=== PATIENT | female | born 1950 | race Two or more races ===

== ENCOUNTER 2023-10-12 15:38 | Emergency (ER) | payer OTHER ==
[~2023-10-12] VITALS: Ht 162.6 cm; Wt 73.5 kg
[2023-10-12 18:06] LABS: Basophils # (auto) 0.1 10 ^3/uL (0-0.2); Basophils % (auto) 0.4 % (0.0-2.0); Eosinophils # (auto) 0.1 10 ^3/uL (0-0.8); Eosinophils % (auto) 1.1 % (0.0-7.0); Hematocrit 41.1 % (36.0-46.0); Hemoglobin 13.6 g/dL (12.2-16.2); Lymphocytes # (auto) 1.5 10 ^3/uL (0.4-5.4); Lymphocytes % (auto) 11.4 % (10.0-50.0); Mean Corpuscular Hemoglobin 28.8 pg (28.0-32.0); Mean Corpuscular Hgb Conc. 33.1 g/dL (32.0-36.0); Monocytes # (auto) 0.7 10 ^3/uL (0-1.3); Neutrophils # (auto) 10.7 10 ^3/uL (1.6-8.6); Neutrophils % (auto) 82.1 % (37.0-80.0); Nucleated Red Blood Cells % 0.5 %; Red Blood Cells 4.73 10^6/uL (4.0-5.20); Red Cell Distribution Width 14.1 % (11.8-14.3); White Blood Cell 13.1 10^3/uL (4.4-10.8)
[2023-10-12 18:24] LABS: Alanine Aminotransferase 24 U/L (7-40); Albumin 4.6 g/dL (3.2-4.8); Alkaline Phosphatase 77 U/L (46-116); Anion Gap 11 (5-15); Aspartate Aminotransferase 31 U/L (13-40); BUN/Creatinine Ratio 13.2 (10.0-20.0); Bilirubin, Total 0.5 mg/dL (0.2-1.0); Blood Urea Nitrogen 9 mg/dL (9-23); Calcium 9.7 mg/dL (8.7-10.4); Carbon Dioxide 22 mmol/L (20-30); Chloride 104 mmol/L (98-107); Glucose 87 mg/dL (74-106); Lipase 47 U/L (12-53); Magnesium 1.9 mg/dL (1.6-2.6); Potassium 3.9 mmol/L (3.5-5.1); Sodium 137 mmol/L (136-145); Total Protein 7.3 g/dL (5.7-8.2)
[2023-10-12] MEDS: VANCOMYCIN 1GM/200ML 200 ML IV ONE (19:15)
[2023-10-12] MEDS: PIPERACILLIN-TAZOB 3.375GM 100 ML IV ONE (20:45)
[2023-10-12] MEDS: SODIUM CHLORIDE 0.9% 1,000 ML IV ONE (20:45)
[2023-10-12] MEDS: IOHEXOL 300 MG/ML 100ML BOTTLE IJ ONE (21:09)
[2023-10-12] MEDS: OMNIPAQUE 12mg/ml 500ml ORAL SOLUTION PO ONE (21:10)
[2023-10-12] MEDS ORDERED: ZOFR4T PO (21:59)
[2023-10-12] MEDS ORDERED: MESA800T9 PO (21:59)
[2023-10-12] MEDS ORDERED: ACET-1079 PO (21:59)
[2023-10-12] MEDS ORDERED: hydrALAZINE HCL 20 MG/ML VL IV PRN (22:00)
[2023-10-12] MEDS: MESALAMINE 400mg Delayed Release Cap PO ONE (23:59)
[2023-10-13 00:01] VITALS: BP 144/60; TEMP 98.4
[2023-10-13 00:02] VITALS: PULSE 78; RESP 20; O2SAT 96
== END 2023-10-13 00:18 | disposition home or self-care (01) ==
LOC: ER 15:38
DX: K52.9 Noninfective gastroenteritis and colitis, unspecified (principal); I10 Essential (primary) hypertension; E11.9 Type 2 diabetes mellitus without complications; E78.5 Hyperlipidemia, unspecified; Z90.710 Acquired absence of both cervix and uterus
CPT/HCPCS: 36415; 74176; 74177; 80053; 83605; 83690; 83735; 84484; 85025; 96365; 96366; 96368; 99285; J2543; J3370; J7030; Q9967

== ENCOUNTER 2024-11-04 11:54 | Inpatient (IN) | payer OTHER ==
[~2024-11-04] VITALS: Ht 162.6 cm; Wt 72.0 kg
[2024-11-04] VITALS (22 sets, daily range): BP systolic 86–121; BP diastolic 43–63; PULSE 58–73; RESP 11–18; TEMP 97.5; O2SAT 94–99
[~2024-11-04 11:54] MED LIST: ACET-1079 PO; MESA800T9 PO; ZOFR4T PO
--- NOTE | 2024-11-04 12:14 | ED.PDOC ---
History of Present Illness HPI Comments 74-year-old female with PMHx Colon Cancer presents with a chief complaint of nausea, vomiting, and poor appetite since chemotherapy x 2 weeks ago. Patient was undergoing chemotherapy for colon cancer and had her last session x 2 weeks ago. Patient since then has been having intermittent nausea and vomiting, as well as not eating or drinking anything due to "nothing tastes good". Patient is actively vomiting in triage. Chief Complaint: Nausea/Vomiting Time Seen by MD: 12:01 Primary Care Provider: sonia Reviewed Notes: Nurses Notes, Medications, Allergies Allergies: Coded Allergies: NO KNOWN ALLERGIES (Unverified , 10/12/23) Home Meds Active Scripts Acetaminophen (Tylenol) 325 Mg Tb, 325 MG PO Q4HPRN PRN for 12 Days, #60 TAB for pain Prov:МАРИЯ BURGESS MD 10/12/23 Ondansetron Odt 4MG Tab (ZOFRAN PO) 4 Mg Tb, 4 MG PO Q8HP PRN for 10 Days, #30 TAB ODT TAB-DISSOLVE IN MOUTH, THEN SWALLOW Prov:МАРИЯ BURGESS MD 10/12/23 Mesalamine (Mesalamine Dr) 800 Mg Tab, 800 MG PO TID for 42 Days, #126 TAB Prov:МАРИЯ BURGESS MD 10/12/23 Information Source: Patient, Relative (GrandChild) Mode of Arrival: Wheelchair Severity: Moderate Timing: Days Duration: Since onset Prehospital treatment: None Past Medical History PAST MEDICAL HISTORY: Cancer, DM, High Lipids, HTN Surgical History: 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 Hx Family History Family History: Unknown Social History Smoker: Non-Smoker Alcohol: Denies ETOH Use Drugs: Denies Drug Use Lives In: Home Constitutional: denies: chills, diaphoresis, fatigue, fever, malaise, sweats, weakness, others EENTM: denies: blurred vision, double vision, ear bleeding, ear discharge, ear drainage, ear pain, ear ringing, eye pain, eye redness, hearing loss, mouth pain, mouth swelling, nasal discharge, nose bleeding, nose congestion, nose pain, photophobia, tearing, throat pain, throat swelling, voice changes, others Respiratory: denies: cough, hemoptysis, orthopnea, SOB at rest, shortness of breath, SOB with excertion, stridor, wheezing, others Cardiovascular: denies: chest pain, dizzy spells, diaphoresis, Dyspnea on exertion, edema, irregular heart beat, left arm pain, lightheadedness, palpitations, PND, syncope, others Gastrointestinal: reports: nausea, poor appetite, vomiting; denies: abdomen distended, abdominal pain, blood streaked bowels, constipated, diarrhea, dysphagia, difficulty swallowing, hematemesis, melena, poor fluid intake, rectal bleeding, rectal pain, others Genitourinary: denies: abnormal vagina bleeding, burning, dyspareunia, dysuria, flank pain, frequency, hematuria, incontinence, pain, , vagina discharge, urgency, others Neurological: denies: dizziness, fainting, headache, left sided numbness, left sided weakness, numbness, paresthesia, pre-existing deficit, right sided numbness, right sided weakness, seizure, speech problems, tingling, tremors, weakness, others Musculoskeletal: denies: back pain, gout, joint pain, joint swelling, muscle pain, muscle stiffness, neck pain, others Integumetry: denies: bruises, change in color, change in hair/nails, dryness, laceration, lesions, lumps, rash, wounds, others Allergic/Immunocompromised: denies: Difficulty Healing, Frequent Infections, Hives, Itching, others Hematologic/Lymphatic: denies: anemia, blood clots, easy bleeding, easy bruising, swollen glands, others Endocrine: denies: excessive hunger, excessive sweating, excessive thirst, excessive urination, flushing, intolerance to cold, intolerance to heat, unexplained weight gain, unexplained weight loss, others Psychiatric: denies: anxiety, bipolar disorder, depression, hopeless, panic disorder, schizophrenia, sleepless, suicidal, others All Other Systems: Reviewed and Negative Physical Exam General Appearance: Moderate Distress HEENT: Pale Conjuntivae (L), Pale Conjuntivae (R), Pharynx Normal, TMs Normal Neck: Full Range of Motion, Non-Tender, Normal, Normal Inspection Respiratory: Chest Non-Tender, Lungs Clear, No Accessory Muscle Use, No Respiratory Distress, Normal Breath Sounds Cardiovascular: No Edema, No JVD, No Murmur, No Gallop, Normal Peripheral Pulses, Regular Rate/Rhythm Breast Exam: Deferred Gastrointestinal: No Organomegaly, Non Tender, No Pulsatile Mass, Normal Bowel Sounds, Soft Genitalia: Deferred Pelvic: Deferred Rectal: Deferred Extremities: No calf tenderness, Normal capillary refill, No pedal edema Musculoskeletal : Apperance: Normal Neurologic: Alert, 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 Was a procedure done?: No Differential Dx Considerations may include: Generalized weakness, electrolyte imbalance, hypokalemia, dehydration, colon cancer, status post chemotherapy X-Ray, Labs, Meds, VS Vital Signs Date Time Temp Pulse Resp B/P (MAP) Pulse Ox O2 Delivery O2 Flow Rate FiO2 11/04/24 14:02 69 11/04/24 13:40 97.6 66 16 78/46 (57) 98 97.6 76/48 (57) 11/04/24 12:07 97.7 75 16 120/80 (93) 98 97.7 Lab Test 11/04/24 12:40 Range/Units White Blood Count 5.6 4.4-10.8 10^3/uL Red Blood Count 4.33 4.0-5.20 10^6/uL Hemoglobin 13.2 12.2-16.2 g/dL Hematocrit 38.4 36.0-46.0 % Mean Corpuscular Volume 88.9 80.0-100.0 fL Mean Corpuscular Hemoglobin 30.6 28.0-32.0 pg Mean Corpuscular Hemoglobin Concent 34.4 32.0-36.0 g/dL Red Cell Distribution Width 18.6 H 11.8-14.3 % Platelet Count 270 140-450 10^3/uL Mean Platelet Volume 8.1 6.9-10.8 fL Neutrophils (%) (Auto) 37.0-80.0 % Lymphocytes (%) (Auto) 10.0-50.0 % Monocytes (%) (Auto) 0.0-12.0 % Basophils (%) (Auto) 0.0-2.0 % Neutrophils # (Auto) 1.6-8.6 10 ^3/uL Lymphocytes # (Auto) 0.4-5.4 10 ^3/uL Monocytes # (Auto) 0-1.3 10 ^3/uL Differential Total Cells Counted 100.0 100 Neutrophils % (Manual) 45 37.0-80.0 Band Neutrophils % (Manual) 5 Lymphocytes % (Manual) 46 10.0-50.0 Monocytes % (Manual) 1 0-12 Eosinophils % (Manual) 0 0-7 Basophils % (Manual) 0 0.0-2.0 Metamyelocytes % (manual) 2 Myelocytes % (Manual) 1 Promyelocytes % (Manual) 0 Blast Cells % (Manual) 0 Reactive Lymphocytes 0 Platelet Estimate Adequate Sodium Level 135 L 136-145 mmol/L Potassium Level 2.1 *L 3.5-5.1 mmol/L Chloride Level 95 L 98-107 mmol/L Carbon Dioxide Level 20 20-31 mmol/L Anion Gap 20 H 5-15 Blood Urea Nitrogen 48 H 9-23 mg/dL Creatinine 6.60 H 0.550-1.02 mg/dL Glomerular Filtration Rate Calc 6 >90 mL/min BUN/Creatinine Ratio 7.3 L 10.0-20.0 Serum Glucose 140 H 74-106 mg/dL Calcium Level 9.7 8.7-10.4 mg/dL Total Bilirubin 1.2 H 0.2-1.0 mg/dL Aspartate Amino Transferase (AST) 46 H 13-40 U/L Alanine Aminotransferase (ALT) 26 7-40 U/L Alkaline Phosphatase 150 H 46-116 U/L Total Protein 6.5 5.7-8.2 g/dL Albumin 3.8 3.2-4.8 g/dL Current Medications Medications (Trade) Dose Ordered Sig/Konstantin Route Start Time Stop Time Status Last Admin Sodium Chloride 500 ml @ 500 mls/hr Q1H ONCE IV 11/04/24 12:15 11/04/24 13:14 DC 11/04/24 12:47 Ondansetron HCl (Zofran) 4 mg ONCE ONCE IV 11/04/24 12:15 11/04/24 12:16 DC 11/04/24 12:47 Potassium Chloride 100 ml @ 50 mls/hr Q2H IV 11/04/24 13:45 11/04/24 17:44 11/04/24 14:29 Potassium Chloride (Klor-Con Tablet) 40 meq ONCE ONCE PO 11/04/24 13:45 11/04/24 13:46 DC 11/04/24 14:09 IV Hep-Lock was established. The patient was bolused with normal saline at a 500 cc bolus The patient was also given Zofran 4 mg IV push for the nausea The patient's potassium level came back at 2.1 The BUN is 48 and the creatinine is 6.6 We did ask again if the patient has kidney disease but she does not. A renal consult will be obtained. We did give the patient potassium as a K rider The patient was also given potassium p.o. The CBC is within normal limits At this time we will continue to hydrate the patient The patient is being admitted at this time. Images Reviewed?: Images reviewed and evaluated by me Time of 1ST Reevaluation: 12:31 Reevaluation 1ST: Improved Patient Education/Counseling: Diagnosis, Treatment, Prognosis Family Education/Counseling: Diagnosis, Treatment, Prognosis Departure 1 Departure Time of Disposition: 14:51 Impression: Primary Impression: Intractable vomiting Additional Impressions: Hypokalemia Dehydration Renal insufficiency Colon cancer Qualified Codes: C18.9 - Malignant neoplasm of colon, unspecified Status post chemotherapy Disposition: ADMITTED INPATIENT Admit to: Tele Condition: Fair Critical Care Note Critical Care Time?: Yes (45 min-critical care time only) Stability Stability form required: Yes Unstable for transfer: Telemetry monitoring (Telemetry monitoring required), ED Physician Assesment (Clinical assesment) Heart Score Heart Score: Heart Score Response (Comments) Value History N/A 0 EKG N/A 0 Age N/A 0 Risk Factors N/A 0 Troponin N/A 0 Total 0 I personally scribed for AUBREY BARAJAS MD ([email or web address]) on 11/04/24 at 12:14. Electronically submitted by David Robledo ([email or web address]). AUBREY BARAJAS MD Nov 04, 2024 12:14
[2024-11-04] MEDS: SODIUM CHLORIDE 0.9% 500 ML IV ONE (12:47)
[2024-11-04] MEDS: ONDANSETRON HCL 4 MG/2 ML VIAL IV ONE (12:47)
--- NOTE | 2024-11-04 12:52 | DVH ---
Exam: CT CT AB PEL WO CON-NO ORAL OR IV History: Intractable vomiting and status post chemotherapy Comparison Study: CT CT AB PEL WO CON-NO ORAL OR IV on DOS: 10/12/23 Technique: Multidetector spiral CT of the abdomen was performed from lung bases to pubic symphysis. I maging was performed without IV contrast. Axial, coronal and sagittal multiplanar reformats were obta ined from the axial data set by the technologist. Radiation Dose : 1. Abdomen/Pelvis: CTDIvol 6.69 mGy, DLP 353.17 mGy*cm. Findings: Evaluation of solid organs is limited due to lack of intravenous contrast use. Lung Bases: No acute or significant lung base finding. Normal heart size. No pleural or pericardial effusion. Liver: The liver is normal in size. No focal lesions. Gallbladder and Biliary Tree: Cholelithiasis noted without secondary findings of cholecystitis or ran iary obstruction. Spleen: Unremarkable Pancreas: The pancreas is grossly normal in appearance. Adrenal Glands: Unremarkable Kidneys: Kidneys are grossly normal without calculi or hydronephrosis. Bladder: Grossly unremarkable for degree of distention. Bowel: The stomach is grossly normal in appearance. Post partial colectomy. Anterior lower abdominal ostomy. Appendix is top-normal in size measuring 0.7 cm with mild surrounding inflammatory change. Se jodi diffuse wall thickening of small and large bowel loops. Ascites: Absent Lymphadenopathy: No mesenteric, retroperitoneal or periportal lymphadenopathy. Abdominal Wall and Mesentery: Unremarkable. Vasculature: The visualized abdominal aorta is normal in size and caliber. Evaluation of abdominal a nd pelvic vessels is limited due to lack of intravenous contrast. Pelvic Organs: The uterus is surgically absent. Musculoskeletal: No aggressive focal bony lesions, acute fractures or dislocation. Multilevel degener ative changes of the spine. IMPRESSION: Severe diffuse wall thickening of small and large bowel loops suspicious for enteritis colitis; possi alethea inflammatory reactive to chemotherapy (chemotherapy-induced mucositis). Clinical correlation advi sed. The appendix is top-normal in size with mild inflammatory change. Appendicitis is felt to be less lik mayela and inflammatory changes are likely reactive and related to adjacent inflammation.
[2024-11-04 13:10] LABS: Hematocrit 38.4 % (36.0-46.0); Hemoglobin 13.2 g/dL (12.2-16.2); Mean Corpuscular Hemoglobin 30.6 pg (28.0-32.0); Mean Corpuscular Hgb Conc. 34.4 g/dL (32.0-36.0); Mean Corpuscular Volume 88.9 fL (80.0-100.0); Platelet Count (auto) 270 10^3/uL (140-450); Red Blood Cells 4.33 10^6/uL (4.0-5.20); Red Cell Distribution Width 18.6 % (11.8-14.3); White Blood Cell 5.6 10^3/uL (4.4-10.8)
[2024-11-04 13:13] LABS: Basophils % (manual) 0 (0.0-2.0); Blast Cells 0; Eosinophils % (manual) 0 (0-7); Promyelocytes % 0; Reactive Lymphocytes 0
[2024-11-04 13:26] LABS: Alanine Aminotransferase 26 U/L (7-40); Albumin 3.8 g/dL (3.2-4.8); Anion Gap 20 (5-15); BUN/Creatinine Ratio 7.3 (10.0-20.0); Calcium 9.7 mg/dL (8.7-10.4); Carbon Dioxide 20 mmol/L (20-31); Total Protein 6.5 g/dL (5.7-8.2)
[2024-11-04 13:27] LABS: Alkaline Phosphatase 150 U/L (46-116); Aspartate Aminotransferase 46 U/L (13-40); Bilirubin, Total 1.2 mg/dL (0.2-1.0); Blood Urea Nitrogen 48 mg/dL (9-23); Chloride 95 mmol/L (98-107); Glucose 140 mg/dL (74-106); Sodium 135 mmol/L (136-145)
[2024-11-04 13:36] LABS: Potassium 2.1 mmol/L (3.5-5.1)
[2024-11-04 13:49] LABS: Band Neutrophils % (manual) 5; Lymphocytes % (manual) 46 (10.0-50.0); Metamyelocytes % 2; Monocytes % (manual) 1 (0-12); Myelocytes % 1; Platelet Estimate Adequate
[2024-11-04] MEDS: POTASSIUM CHL 20 Meq TABLET PO ONE (14:09)
[2024-11-04] MEDS: POTASSIUM CHL 20MEQ/100ML 100 ML IV SCH (14:29)
[2024-11-04] MEDS: SODIUM CHLORIDE 0.9% 2,000 ML IV ONE (14:45)
[2024-11-04] MEDS ORDERED: NITROGLYCERIN 0.4 MG SL TAB SL PRN (14:45)
[2024-11-04] MEDS ORDERED: ONDANSETRON HCL 4 MG/2 ML VIAL IV PRN (14:45)
[2024-11-04] MEDS ORDERED: ACETAMINOPHEN 325 MG TAB PO PRN (14:45)
[2024-11-04] MEDS ORDERED: MORPHINE SULFATE INJ 2 MG/ml SYRG IV PRN (14:45)
--- NOTE | 2024-11-04 15:55 | DVHHP2 ---
Admitting Diagnosis: Intractable Nausea and Vomiting History of Present Illness HPI Patient is a 74-year-old female with past medical history of non-metastatic colon cancer with colostomy bag, DVT, HTN, HLD, who completed her 12 chemotherapy session October 16 who presents with intractable nausea and vomiting for the past week. Patient is accompanied by daughter Betty. She states that patient usually gets a 2 day infusion. However, for her final session her pump prematurely stopped. She followed up at her oncologist who she states that the leftover chemotherapy was bolused through her chemotherapy port. She subsequently began to notice her GI symptoms. Patient otherwise tolerated her previous chemotherapy without complications. She is noted to have begun her chemotherapy May 2024. Vitals were notable for hypotension with systolic in the 70s in the ER. Patient was aggressively hydrated with normal saline. CT abdomen and pelvis was done which showed severe diffuse wall thickening of the small and large bowel loops suspicious for enteritis colitis, possibly inflammatory and reactive to to chemotherapy. CBC did not reveal any leukocytosis. CMP was notable for BUN/creatinine of 48/6.60. Patient denies any history of CKD. Potassium was 2.1. Patient was admitted for further medical management. Home Meds Active Scripts Acetaminophen (Tylenol) 325 Mg Tb, 325 MG PO Q4HPRN PRN for 12 Days, #60 TAB for pain Prov:МАРИЯ BURGESS MD 10/12/23 Ondansetron Odt 4MG Tab (ZOFRAN PO) 4 Mg Tb, 4 MG PO Q8HP PRN for 10 Days, #30 TAB ODT TAB-DISSOLVE IN MOUTH, THEN SWALLOW Prov:МАРИЯ BURGESS MD 10/12/23 Mesalamine (Mesalamine Dr) 800 Mg Tab, 800 MG PO TID for 42 Days, #126 TAB Prov:МАРИЯ BURGESS MD 10/12/23 Reported Medications Rivaroxaban (XARELTO) 20 Mg Tab, 1 TAB PO DAILY, #30 TAB 11 Refills 11/04/24 Lisinopril (Lisinopril) 20 Mg Tab, 20 MG PO DAILY for 30 Days, MG 11/04/24 Metformin Hydrochloride (Metformin Hcl) 500 Mg Tab, 1000 MG PO IBID for 30 Days, MG 11/04/24 Amlodipine Besylate (Amlodipine Besylate) 5 Mg Tab, 5 MG PO DAILY for 30 Days, MG 11/04/24 Atorvastatin Calcium (ATORVASTATIN CALCIUM) 20 Mg Tab, 1 TAB PO DAILY, #30 TAB 5 Refills 11/04/24 Past Medical History Hemotology/Oncology: Other (Colon cancer) Review of Systems Constitutional: Weakness Gastrointestinal: Nausea, Vomiting H&P Exam Vital Signs Vital Signs Date Time Temp Pulse Resp B/P (MAP) Pulse Ox O2 Delivery O2 Flow Rate FiO2 11/04/24 15:15 67 16 96/46 (63) 98 76/48 (57) 11/04/24 13:40 97.6 97.6 General Appeara: Mild distress Cardiovascular/Chest: Regular rate Abdominal Exam: Normal bowel sounds Labs/Xrays Labs Test 11/04/24 12:40 Range/Units White Blood Count 5.6 4.4-10.8 10^3/uL Red Blood Count 4.33 4.0-5.20 10^6/uL Hemoglobin 13.2 12.2-16.2 g/dL Hematocrit 38.4 36.0-46.0 % Mean Corpuscular Volume 88.9 80.0-100.0 fL Mean Corpuscular Hemoglobin 30.6 28.0-32.0 pg Mean Corpuscular Hemoglobin Concent 34.4 32.0-36.0 g/dL Red Cell Distribution Width 18.6 H 11.8-14.3 % Platelet Count 270 140-450 10^3/uL Mean Platelet Volume 8.1 6.9-10.8 fL Neutrophils (%) (Auto) 37.0-80.0 % Lymphocytes (%) (Auto) 10.0-50.0 % Monocytes (%) (Auto) 0.0-12.0 % Basophils (%) (Auto) 0.0-2.0 % Neutrophils # (Auto) 1.6-8.6 10 ^3/uL Lymphocytes # (Auto) 0.4-5.4 10 ^3/uL Monocytes # (Auto) 0-1.3 10 ^3/uL Differential Total Cells Counted 100.0 100 Neutrophils % (Manual) 45 37.0-80.0 Band Neutrophils % (Manual) 5 Lymphocytes % (Manual) 46 10.0-50.0 Monocytes % (Manual) 1 0-12 Eosinophils % (Manual) 0 0-7 Basophils % (Manual) 0 0.0-2.0 Metamyelocytes % (manual) 2 Myelocytes % (Manual) 1 Promyelocytes % (Manual) 0 Blast Cells % (Manual) 0 Reactive Lymphocytes 0 Platelet Estimate Adequate Sodium Level 135 L 136-145 mmol/L Potassium Level 2.1 *L 3.5-5.1 mmol/L Chloride Level 95 L 98-107 mmol/L Carbon Dioxide Level 20 20-31 mmol/L Anion Gap 20 H 5-15 Blood Urea Nitrogen 48 H 9-23 mg/dL Creatinine 6.60 H 0.550-1.02 mg/dL Glomerular Filtration Rate Calc 6 >90 mL/min BUN/Creatinine Ratio 7.3 L 10.0-20.0 Serum Glucose 140 H 74-106 mg/dL Calcium Level 9.7 8.7-10.4 mg/dL Total Bilirubin 1.2 H 0.2-1.0 mg/dL Aspartate Amino Transferase (AST) 46 H 13-40 U/L Alanine Aminotransferase (ALT) 26 7-40 U/L Alkaline Phosphatase 150 H 46-116 U/L Total Protein 6.5 5.7-8.2 g/dL Albumin 3.8 3.2-4.8 g/dL Assessment/Plan Primary Diagnosis 1. Intractable nausea and vomiting secondary to chemotherapy 2. Acute renal failure 3. Enteritis, chemotherapy-induced 4. Electrolyte abnormalities 5. Colon cancer 6. Hx of LE DVTs Plan - Admit to ICU - Bolused 2 L NS for total IV fluid of 2.5 L - Levophed for MAP less than 65 mmHg - Nephrology consulted for VAL. - Ultrasound renal pending - TTE pending for IVC collapsibility - Strict I's and O's - Zofran, sucralfate, Protonix - Ertapenem 500 mg IV daily due to concern for underlying bacterial translocation given patient is immunocompromised secondary to chemotherapy -US LE to evaluate for DVTs - Daily CBC and BMP - Full code Plan discussed with: Patient GAURAV RUBIN DO Nov 04, 2024 15:54
[2024-11-04] MEDS: NOREPINEPHRINE 8 MG/250ML KIT 250 ML IV SCH (16:09)
--- NOTE | 2024-11-04 16:34 | DVH ---
INDICATION: VAL TECHNIQUE: Multiple real-time sonographic images of the kidneys and bladder were obtained. COMPARISON: CT abdomen and pelvis 12/02/2023 FINDINGS: The right kidney measures 9.2 cm in length, which is normal in size. There is normal echogenicity of the right kidney. No hydronephrosis. The left kidney measures 9.9 cm in length, which is normal in size. There is normal echogenicity of the left kidney. No hydronephrosis. Limited evaluation of the urinary bladder due to inadequate distention. IMPRESSION: Unremarkable sonographic study of the kidneys. Limited evaluation of the urinary bladder due to inadequate distention.
--- NOTE | 2024-11-04 17:06 | DVHINCON2 ---
Date of service: Nov 04, [address] Hogue Reason for Consultation Acute kidney injury History of Present Illness Patient is a 74-year-old female with past medical history significant for Colon cancer on chemotherapy, DM, High Lipids, and HTN is admitted for nausea vomiting diarrhea and poor intake for two weeks. On admission patient found to have elevated BUN creatinine nephrology is consulted for acute kidney injury Past Medical History Colon cancer on chemotherapy, DM, High Lipids, and HTN Past Surgical History Surgical History: Hysterectomy, colostomy Allergies: Coded Allergies: NO KNOWN ALLERGIES (Unverified , 10/12/23) Home Meds Active Scripts Acetaminophen (Tylenol) 325 Mg Tb, 325 MG PO Q4HPRN PRN for 12 Days, #60 TAB for pain Prov:МАРИЯ BURGESS MD 10/12/23 Ondansetron Odt 4MG Tab (ZOFRAN PO) 4 Mg Tb, 4 MG PO Q8HP PRN for 10 Days, #30 TAB ODT TAB-DISSOLVE IN MOUTH, THEN SWALLOW Prov:МАРИЯ BURGESS MD 10/12/23 Mesalamine (Mesalamine Dr) 800 Mg Tab, 800 MG PO TID for 42 Days, #126 TAB Prov:МАРИЯ BURGESS MD 10/12/23 Reported Medications Rivaroxaban (XARELTO) 20 Mg Tab, 1 TAB PO DAILY, #30 TAB 11 Refills 11/04/24 Lisinopril (Lisinopril) 20 Mg Tab, 20 MG PO DAILY for 30 Days, MG 11/04/24 Metformin Hydrochloride (Metformin Hcl) 500 Mg Tab, 1000 MG PO IBID for 30 Days, MG 11/04/24 Amlodipine Besylate (Amlodipine Besylate) 5 Mg Tab, 5 MG PO DAILY for 30 Days, MG 11/04/24 Atorvastatin Calcium (ATORVASTATIN CALCIUM) 20 Mg Tab, 1 TAB PO DAILY, #30 TAB 5 Refills 11/04/24 Current Medications Current Medications Medications (Trade) Dose Ordered Sig/Konstantin Route PRN Reason Start Time Stop Time Status Last Admin Potassium Chloride 100 ml @ 50 mls/hr Q2H IV 11/04/24 13:45 11/04/24 17:44 DC 11/04/24 17:44 Acetaminophen (Tylenol Tablet) 325 mg Q4HP PRN PO MILD PAIN (1-3 PAIN SCALE) 11/04/24 14:45 Nitroglycerin (Ntrostat Sublingual) 0.4 mg Q5MINP PRN SL FOR CHEST PAIN 11/04/24 14:45 Morphine Sulfate 2 mg Q30M PRN IV FOR CHEST PAIN 11/04/24 14:45 Ondansetron HCl (Zofran) 8 mg Q6HP PRN IV Nausea and vomiting 11/04/24 14:45 Sucralfate (Carafate Susp) 1 gm TID PO 11/04/24 15:00 11/05/24 06:10 Famotidine (Pepcid Injection) 10 mg DAILY IV 11/04/24 15:15 11/05/24 09:52 Norepinephrine Bitartrate 250 ml @ 3.75 mls/hr Q24H IV 11/04/24 16:00 11/05/24 09:41 DC 11/04/24 16:09 Magnesium Sulfate/ Dextrose 100 ml @ 100 mls/hr Q1HR IV 11/04/24 17:00 11/04/24 18:59 DC 11/04/24 20:13 Sodium Bicarbonate 50 ml/ Sodium Chloride 1,050 ml @ 100 mls/hr [id number] IV 11/04/24 17:15 11/05/24 09:47 DC 11/05/24 05:46 Albumin Human 100 ml @ 100 mls/hr Q8H IV 11/04/24 17:15 11/05/24 10:14 DC 11/05/24 09:50 Norepinephrine Bitartrate 250 ml @ 3.75 mls/hr Q24H IV 11/05/24 09:45 Sodium Bicarbonate 50 ml/ Sodium Chloride 1,050 ml @ 125 mls/hr Q8H24M IV 11/05/24 09:45 11/05/24 10:44 Potassium Bicarbonate (Klor-Con/Ef) 50 meq BID PO 11/05/24 10:00 11/06/24 22:01 Review of Systems All 12 item review of systems reviewed with the patient nonsignificant except what is mentioned in the history of present illness H&P Exam Vital Signs/I&O Vital Sign Date Time Temp Pulse Resp B/P (MAP) Pulse Ox O2 Delivery O2 Flow Rate FiO2 11/05/24 10:00 68 11/05/24 09:15 115/58 (77) 96 11/05/24 08:00 13 Room Air* 0 21 21 11/05/24 08:00 97.7 97.7 Intake and Output 11/04/24 11/05/24 19:00 07:00 Intake Total 2150 ml 1637.50 ml Output Total 100 ml Balance 2150 ml 1537.50 ml Intake Oral 300 ml IV Total 2150 ml 1337.50 ml Stool Total 100 ml # Voids 1 Physical Exam Patient lying comfortably in bed Lungs clear to auscultation bilaterally Cardiac exam regular rate and rhythm GI colostomy bag with increase flow normal Extremities no clubbing cyanosis or edema Neuro nonfocal Labs/Diagnostic Data Labs/Diagnostic Data Laboratory Tests Test 11/05/24 05:05 11/04/24 12:40 Range/Units White Blood Count 5.2 5.6 4.4-10.8 10^3/uL Red Blood Count 3.25 L 4.33 4.0-5.20 10^6/uL Hemoglobin 10.0 #L 13.2 12.2-16.2 g/dL Hematocrit 29.4 #L 38.4 36.0-46.0 % Mean Corpuscular Volume 90.2 88.9 80.0-100.0 fL Mean Corpuscular Hemoglobin 30.8 30.6 28.0-32.0 pg Mean Corpuscular Hemoglobin Concent 34.2 34.4 32.0-36.0 g/dL Red Cell Distribution Width 18.1 H 18.6 H 11.8-14.3 % Platelet Count 139 L 270 140-450 10^3/uL Mean Platelet Volume 7.9 8.1 6.9-10.8 fL Neutrophils (%) (Auto) 37.0-80.0 % Lymphocytes (%) (Auto) 10.0-50.0 % Monocytes (%) (Auto) 0.0-12.0 % Basophils (%) (Auto) 0.0-2.0 % Neutrophils # (Auto) 1.6-8.6 10 ^3/uL Lymphocytes # (Auto) 0.4-5.4 10 ^3/uL Monocytes # (Auto) 0-1.3 10 ^3/uL Differential Total Cells Counted 100.0 100.0 100 Neutrophils % (Manual) 52 45 37.0-80.0 Band Neutrophils % (Manual) 2 5 Lymphocytes % (Manual) 32 46 10.0-50.0 Monocytes % (Manual) 6 1 0-12 Eosinophils % (Manual) 0 0 0-7 Basophils % (Manual) 0 0 0.0-2.0 Metamyelocytes % (manual) 4 2 Myelocytes % (Manual) 2 1 Promyelocytes % (Manual) 2 0 Blast Cells % (Manual) 0 0 Reactive Lymphocytes 0 0 Platelet Estimate Decreased Adequate Sodium Level 139 135 L 136-145 mmol/L Potassium Level 2.4 *L 2.1 *L 3.5-5.1 mmol/L Chloride Level 103 95 L 98-107 mmol/L Carbon Dioxide Level 18 L 20 20-31 mmol/L Anion Gap 18 H 20 H 5-15 Blood Urea Nitrogen 44 H 48 H 9-23 mg/dL Creatinine 5.57 H 6.60 H 0.550-1.02 mg/dL Glomerular Filtration Rate Calc 8 6 >90 mL/min BUN/Creatinine Ratio 7.9 L 7.3 L 10.0-20.0 Serum Glucose 65 L 140 H 74-106 mg/dL Calcium Level 8.5 L 9.7 8.7-10.4 mg/dL Total Bilirubin 0.9 1.2 H 0.2-1.0 mg/dL Aspartate Amino Transferase (AST) 34 46 H 13-40 U/L Alanine Aminotransferase (ALT) 16 26 7-40 U/L Alkaline Phosphatase 101 150 H 46-116 U/L Total Protein 5.6 L 6.5 5.7-8.2 g/dL Albumin 3.7 3.8 3.2-4.8 g/dL Hemoglobin A1c 6.8 H <5.7 % A1C Uric Acid 10.1 H 3.1-7.8 mg/dL Phosphorus Level 5.4 H 2.4-5.1 mg/dL Magnesium Level 2.3 1.6-2.6 mg/dL B-Type Natriuretic Peptide 24.69 0-100 pg/mL Vitamin D 25-Hydroxy 19.0 L 30.0-100 ng/mL Parathyroid Hormone (Intact) 127.6 H 18.4-80.1 pg/mL Assessment Acute kidney injury secondary to hemodynamic mediated Intractable nausea vomiting History of colon cancer on chemotherapy Hypokalemia due to potassium depletion Hyponatremia due to dehydration Metabolic acidosis Diabetes mellitus Colostomy Recommendations Closely monitor fluid and electrolytes Avoid nephrotoxic medications Strict I&Os Check urine analysis urine electrolytes and protein excretion Kidney ultrasound reported within normal limit I agree with IV fluid hydration Albumin 25% IV piggyback KCL replacement Magnesium sulfate IV piggyback GI consult We will continue to follow Patient seen and examined by myself. I discussed my plan of care with the patient and primary nurse at the bedside I would like to thank Dr. Hogue for the consult, will follow up Plan discussed with: Patient FAUSTINO KIMBROUGH MD Nov 04, 2024 17:06
[2024-11-04 17:28] LABS: Magnesium 2.3 mg/dL (1.6-2.6)
[2024-11-04 17:30] LABS: Phosphorus 5.4 mg/dL (2.4-5.1)
[2024-11-04] MEDS: FAMOTIDINE (10MG/ML) 2ML VL IV SCH (17:42)
[2024-11-04] MEDS: SUCRALFATE 1 GM/10 ML ORAL SUSP PO SCH (17:42)
--- NOTE | 2024-11-04 17:54 | DVH ---
CLINICAL HISTORY: Pt hx of DVT, eval for current presence TECHNIQUE: Color and duplex doppler imaging of the bilateral lower extremity veins was performed. Ves lakisha compression if possible was also performed. WID: COMPARISON: None FINDINGS: Right Lower Extremity: Right common femoral vein: Normal compressibility and flow. Right femoral vein: Normal compressibility and flow. Right popliteal vein: Normal compressibility and flow. Proximal calf veins are normally compressible. Left Lower Extremity: Left common femoral vein: Normal compressibility and flow. Left femoral vein: Normal compressibility and flow. Left popliteal vein: Normal compressibility and flow. Proximal calf veins are normally compressible. IMPRESSION: NO SONOGRAPHIC EVIDENCE FOR DEEP VENOUS THROMBOSIS IN THE BILATERAL LOWER EXTREMITY VEINS.
[2024-11-04] MEDS: MAGNESIUM SULFATE 1GM/100ML 100 ML IV SCH (18:16)
[2024-11-04] MEDS: SODIUM BICARB 50mEq/50ml Vial 50 ML in SOD CHL 0.45% 1,000 ML IV SCH (18:21)
[2024-11-04] MEDS ORDERED: RIVA20TA PO (21:16)
[2024-11-04] MEDS ORDERED: ATOR20TA50 PO (21:16)
[2024-11-04] MEDS ORDERED: LISI20TA56 PO (21:16)
[2024-11-04] MEDS ORDERED: METF-370 PO (21:16)
[2024-11-04] MEDS ORDERED: AMLO1TAB22 PO (21:16)
[2024-11-04] MEDS: ALBUMIN 25% 100 ML IV SCH (22:37)
[2024-11-05] VITALS (96 sets, daily range): BP systolic 87–128; BP diastolic 42–73; PULSE 51–114; RESP 11–25; TEMP 97.6–98; O2SAT 92–100
[2024-11-05] MEDS: ERTAPENEM SOD INJ 1 GM in SODIUM CHL 0.9% 50 ML IV ONE (01:02)
[2024-11-05 05:58] LABS: Hematocrit 29.4 % (36.0-46.0); Mean Corpuscular Hemoglobin 30.8 pg (28.0-32.0); Mean Corpuscular Hgb Conc. 34.2 g/dL (32.0-36.0); Mean Corpuscular Volume 90.2 fL (80.0-100.0); Platelet Count (auto) 139 10^3/uL (140-450); Red Blood Cells 3.25 10^6/uL (4.0-5.20); Red Cell Distribution Width 18.1 % (11.8-14.3); White Blood Cell 5.2 10^3/uL (4.4-10.8)
[2024-11-05 06:20] LABS: Alanine Aminotransferase 16 U/L (7-40); Albumin 3.7 g/dL (3.2-4.8); Alkaline Phosphatase 101 U/L (46-116); Anion Gap 18 (5-15); Aspartate Aminotransferase 34 U/L (13-40); BUN/Creatinine Ratio 7.9 (10.0-20.0); Chloride 103 mmol/L (98-107); Sodium 139 mmol/L (136-145)
[2024-11-05 06:21] LABS: Bilirubin, Total 0.9 mg/dL (0.2-1.0)
[2024-11-05 06:27] LABS: Blood Urea Nitrogen 44 mg/dL (9-23); Calcium 8.5 mg/dL (8.7-10.4); Carbon Dioxide 18 mmol/L (20-31); Glucose 65 mg/dL (74-106); Total Protein 5.6 g/dL (5.7-8.2)
[2024-11-05 06:28] LABS: Potassium 2.4 mmol/L (3.5-5.1)
[2024-11-05 06:31] LABS: Basophils % (manual) 0 (0.0-2.0); Blast Cells 0; Eosinophils % (manual) 0 (0-7); Reactive Lymphocytes 0
[2024-11-05 07:02] LABS: Band Neutrophils % (manual) 2; Lymphocytes % (manual) 32 (10.0-50.0); Metamyelocytes % 4; Monocytes % (manual) 6 (0-12); Myelocytes % 2; Promyelocytes % 2
[2024-11-05 07:03] LABS: Platelet Estimate Decreased
[2024-11-05] MEDS: POTASSIUM CHL 20 Meq TABLET PO ONE ×2 (08:35→10:43)
[2024-11-05] MEDS ORDERED: POTASSIUM EFFERVESENT TAB 25 MEQ PO ONE (09:30)
[2024-11-05] MEDS: NOREPINEPHRINE 8 MG/250ML KIT 250 ML IV SCH ×2 (09:45→20:15)
[2024-11-05] MEDS: SODIUM BICARB 50mEq/50ml Vial 50 ML in SOD CHL 0.45% 1,000 ML IV SCH (10:44)
--- NOTE | 2024-11-05 11:06 | DVHPN2 ---
Progress Note Date Seen: Nov 05, 2024 Medical Necessity Reason Pt with a Central, PICC or Fol: No Subjective Patient reports: No new complaints, Feels better Other Systems: Patient seen and examined by myself today in follow-up Objective vital signs Vital Sign Date Time Temp Pulse Resp B/P (MAP) Pulse Ox O2 Delivery O2 Flow Rate FiO2 11/05/24 10:00 68 11/05/24 09:15 115/58 (77) 96 11/05/24 08:00 13 Room Air* 0 21 21 11/05/24 08:00 97.7 97.7 Total Intake and Output 11/04/24 11/04/24 11/05/24 15:00 23:00 07:00 Intake Total 2657.50 ml 1130.00 ml Output Total 100 ml Balance 2657.50 ml 1030.00 ml medications Current Medications Medications Dose Ordered Sig/Konstantin Route Start Time Stop Time Status Last Admin Dose Admin Acetaminophen 325 mg Q4HP PRN PO 11/04/24 14:45 Nitroglycerin 0.4 mg Q5MINP PRN SL 11/04/24 14:45 Morphine Sulfate 2 mg Q30M PRN IV 11/04/24 14:45 Ondansetron HCl 8 mg Q6HP PRN IV 11/04/24 14:45 Sucralfate 1 gm TID PO 11/04/24 15:00 11/05/24 06:10 Famotidine 10 mg DAILY IV 11/04/24 15:15 11/05/24 09:52 Norepinephrine Bitartrate 250 ml @ 3.75 mls/hr Q24H IV 11/05/24 09:45 Sodium Bicarbonate 50 ml/ Sodium Chloride 1,050 ml @ 125 mls/hr Q8H24M IV 11/05/24 09:45 11/05/24 10:44 Potassium Bicarbonate 50 meq BID PO 11/05/24 10:00 11/06/24 22:01 Examination: LUNGS:Normal, CVS:Normal, MSK:Normal laboratory and microbiology Laboratory Tests 11/05/24 05:05 Test 11/05/24 05:05 Range/Units Serum Glucose 65 L 74-106 mg/dL Problem List/Assessment/Plan Problem List/Assessment/Plan Acute kidney injury secondary to hemodynamic mediated Intractable nausea vomiting History of colon cancer on chemotherapy Hypokalemia due to potassium depletion Hyponatremia due to dehydration Hyperuricemia Metabolic acidosis Diabetes mellitus type 2 Colostomy Recommendations Kidney function slightly is improving Increased urine output Strict I&Os Check urine analysis urine electrolytes and protein excretion Kidney ultrasound reported within normal limit I agree with IV fluid hydration Albumin 25% IV piggyback Aggressive KCL replacement Insulin sliding scale We will continue to follow Plan discussed with: Patient My Orders My Orders Orders - FAUSTINO KIMBROUGH MD Procedure Category Date Status Time Urine LAB 11/04/24 Logged Protein/Creatinine Urinalysis LAB 11/04/24 Logged 16:58 Urine Sodium LAB 11/04/24 Logged UNK Sod Chl 0.45% PHA 11/05/24 In Process (Sodi... W/Sodium 09:45 Potassium Effervesent PHA 11/05/24 In Process Tab (Klor-Con/Ef) 10:00 FAUSTINO KIMBROUGH MD Nov 05, 2024 11:06
[2024-11-05] MEDS: POTASSIUM EFFERVESENT TAB 25 MEQ PO SCH (12:45)
--- NOTE | 2024-11-05 13:05 | DVHSR ---
APPROVED REPORT EXAM: Two-dimensional and M-mode echocardiogram with Doppler and color Doppler. Blood Pressure: 78/46 mmHg INDICATION On chemo, dehydrated, evaluate for IVC collapsibility RISK FACTORS Height: 5'4", Weight: 126 DIMENSIONS LVDd3.8 (3.8-5.7cm)LA (2D)3.9 (1.9-4.0cm)Aortic Root3.1 (2.0-3.7cm) LVDs2.7 (2.5-4.0cm)LA (MM) (1.9-4.0cm)Aortic Cusp Exc1.7 (1.5-2.0cm) EF (%) 60.0 (55-70%)Rt. Atrium3.7 (1.9-4.0cm)Asc. Aorta cm IVSd1.1 (0.7-1.1cm)RV (D) (1.8-2.4cm) PWd0.9 (0.7-1.1cm) Mitral Valve MitralMitral Stenosis E wave1.15m/sMV Mean GR.mmHg A wave0.83m/sMV Peak GR.mmHg E/A ratio1.42D MVAcm2 DECEL [id number] 1/2 Timems Aortic Valve Aortic ValveAortic Stenosis V10.98m/Alana Mean GR.5mmHg V21.74m/Alana Peak GR.12mmHg LVOT Diameter2.0 (1.8-2.4cm)Doppler AVA1.77cm2 Pulmonic Valve V20.84m/s Tricuspid Valve TR Velocity2.41m/s [id number] Other Information Technically limited study due to patient position. Conclusion lvef 65% by visual estimate normal rv function left atrium enlarged mild no severe valve abnormaliteis noted
--- NOTE | 2024-11-05 13:39 | DVHPN2 ---
Progress Note - Dictate Date Seen: Nov 05, 2024 Medical Necessity Reason Pt with a Central, PICC or Fol: No Subjective Patient's nausea and vomiting resolved. vital signs Vital Sign Date Time Temp Pulse Resp B/P (MAP) Pulse Ox O2 Delivery O2 Flow Rate FiO2 11/05/24 12:15 18 94 Room Air* 0 21 11/05/24 12:00 54 107/52 (70) 11/05/24 11:45 97.8 97.8 Total Intake and Output 11/04/24 11/04/24 11/05/24 15:00 23:00 07:00 Intake Total 2657.50 ml 1130.00 ml Output Total 100 ml Balance 2657.50 ml 1030.00 ml medications Current Medications Medications Dose Ordered Sig/Konstantin Route Start Time Stop Time Status Last Admin Dose Admin Acetaminophen 325 mg Q4HP PRN PO 11/04/24 14:45 Nitroglycerin 0.4 mg Q5MINP PRN SL 11/04/24 14:45 Morphine Sulfate 2 mg Q30M PRN IV 11/04/24 14:45 Ondansetron HCl 8 mg Q6HP PRN IV 11/04/24 14:45 Sucralfate 1 gm TID PO 11/04/24 15:00 11/05/24 06:10 1 GM Famotidine 10 mg DAILY IV 11/04/24 15:15 11/05/24 09:52 10 MG Norepinephrine Bitartrate 250 ml @ 3.75 mls/hr Q24H IV 11/05/24 09:45 Sodium Bicarbonate 50 ml/ Sodium Chloride 1,050 ml @ 125 mls/hr Q8H24M IV 11/05/24 09:45 11/05/24 10:44 125 MLS/HR Potassium Bicarbonate 50 meq BID PO 11/05/24 10:00 11/06/24 22:01 11/05/24 12:45 50 MEQ objective General appearance: No acute distress Respiratory: Lungs clear to auscultation. No wheezing, crackles Cardiovascular: Regular rate and rhythm, no murmurs. No edema Abdomen: Soft, nondistended, nontender, bowel sounds present. Colostomy bag present. MSK: Normal range of motion. Neuro: Alert, no neurological deficits Psych: Appropriate mood and affect. laboratory and microbiology Laboratory Tests 11/05/24 05:05 Test 11/05/24 05:05 Range/Units Serum Glucose 65 L 74-106 mg/dL Assessment/Plan 1. Intractable nausea and vomiting secondary to chemotherapy 2. Acute renal failure 3. Enteritis, chemotherapy-induced 4. Electrolyte abnormalities 5. Colon cancer 6. LE DVTs Plan - Continue ICU management - Bolused 2 L NS for total IV fluid of 2.5 L, now on 1/2 NS with bicarb - Levophed for MAP less than 65 mmHg. On 2mcg, titrate by 1 mcg. AM cortisol wnl, does not suggest adrenal insufficiency - Nephrology consulted for VAL. - Ultrasound renal wnl - TTE pending for IVC collapsibility - Strict I's and O's - Zofran, sucralfate, Protonix - Ertapenem 500 mg IV daily due to concern for underlying bacterial translocation given patient is immunocompromised secondary to chemotherapy -US LE to evaluate for DVTs, negative. Patient reports taking anticoagulant for recently diagnosed DVT - Daily CBC and BMP - Full code Plan discussed with: Patient Plan discussed with: Patient MARIELLELORENZOGAURAV Esquivel DO Nov 05, 2024 13:39
[2024-11-05] MEDS: PIPERACILLIN-TAZOB 3.375GM 100 ML IV SCH (15:39)
[2024-11-05 16:47] LABS: Protein, Urine 34.8 mg/dL (1-14)
[2024-11-05 16:48] LABS: Urine Amorphous Crystal FEW /hpf (None Seen); Urine Bacteria FEW /hpf (None Seen); Urine Blood TRACE /uL (Negative); Urine Clarity Turbid (Clear); Urine Color Colorless (Yellow); Urine Hyaline Cast FEW /lpf (0 - 2); Urine Protein, UAD TRACE (Negative); Urine Specific Gravity 1.006 (1.001-1.035); Urine Squamous Epithelial Cell FEW /hpf (<5); Urine Urobilinogen Normal (Negative); Urine WBC 35 /HPF (0-5)
[2024-11-05 16:50] LABS: Creatinine, Urine 47.97 mg/dL (30.0-125.0); Urine Protein/Creatinine Ratio 0.73
[2024-11-05] MEDS: SODIUM BICARB 8.4% 50Meq/50ml SYR Vial IV ONE (22:31)
[2024-11-06] VITALS (34 sets, daily range): BP systolic 93–125; BP diastolic 47–69; PULSE 56–71; RESP 16–25; TEMP 97.4–98.5; O2SAT 91–98
[2024-11-06 06:38] LABS: Calcium 9.1 mg/dL (8.7-10.4); Chloride 104 mmol/L (98-107); Potassium 4.2 mmol/L (3.5-5.1); Sodium 142 mmol/L (136-145)
[2024-11-06 06:39] LABS: Anion Gap 10 (5-15); Carbon Dioxide 28 mmol/L (20-31); Hematocrit 29.2 % (36.0-46.0); Hemoglobin 10.1 g/dL (12.2-16.2); Mean Corpuscular Hemoglobin 31.3 pg (28.0-32.0); Mean Corpuscular Hgb Conc. 34.5 g/dL (32.0-36.0); Mean Corpuscular Volume 90.7 fL (80.0-100.0); Platelet Count (auto) 113 10^3/uL (140-450); Red Blood Cells 3.22 10^6/uL (4.0-5.20); Red Cell Distribution Width 19.1 % (11.8-14.3); White Blood Cell 5.1 10^3/uL (4.4-10.8)
[2024-11-06 06:44] LABS: BUN/Creatinine Ratio 7.2 (10.0-20.0); Glucose 83 mg/dL (74-106)
[2024-11-06 06:51] LABS: Blood Urea Nitrogen 36 mg/dL (9-23)
--- NOTE | 2024-11-06 07:11 | DVHPN2 ---
Progress Note Date Seen: Nov 06, 2024 Medical Necessity Reason Pt with a Central, PICC or Fol: No Subjective Patient reports: No new complaints, Feels better Review of Systems: CVS:Normal, RESPIRATORY:Normal, GI:Normal, :Abnormal Objective vital signs Vital Sign Date Time Temp Pulse Resp B/P (MAP) Pulse Ox O2 Delivery O2 Flow Rate FiO2 11/06/24 06:30 65 19 100/49 (66) 91 11/06/24 06:00 Room Air* 0 21 11/05/24 20:00 98.0 98.0 Total Intake and Output 11/05/24 11/05/24 11/06/24 15:00 23:00 07:00 Intake Total 1156.875 ml 1935.025 ml 1100 ml Output Total 520 ml 0 ml Balance 1156.875 ml 1415.025 ml 1100 ml medications Current Medications Medications Dose Ordered Sig/Konstantin Route Start Time Stop Time Status Last Admin Dose Admin Acetaminophen 325 mg Q4HP PRN PO 11/04/24 14:45 Nitroglycerin 0.4 mg Q5MINP PRN SL 11/04/24 14:45 Morphine Sulfate 2 mg Q30M PRN IV 11/04/24 14:45 Ondansetron HCl 8 mg Q6HP PRN IV 11/04/24 14:45 Sucralfate 1 gm TID PO 11/04/24 15:00 11/06/24 06:29 1 GM Famotidine 10 mg DAILY IV 11/04/24 15:15 11/05/24 09:52 10 MG Sodium Bicarbonate 50 ml/ Sodium Chloride 1,050 ml @ 125 mls/hr Q8H24M IV 11/05/24 09:45 11/05/24 22:27 125 MLS/HR Potassium Bicarbonate 50 meq BID PO 11/05/24 10:00 11/06/24 22:01 11/05/24 21:36 50 MEQ Piperacillin Sod/ Tazobactam Sod 100 ml @ 25 mls/hr Q12HR IV 11/05/24 14:45 11/05/24 21:40 25 MLS/HR Norepinephrine Bitartrate 250 ml @ 3.75 mls/hr Q24H IV 11/05/24 20:15 Examination: LUNGS:Normal, CVS:Normal, ABDOMEN:Normal laboratory and microbiology Laboratory Tests 11/06/24 05:59 Test 11/06/24 05:59 Range/Units Serum Glucose 83 74-106 mg/dL Problem List/Assessment/Plan Problem List/Assessment/Plan 1) VAL, improving 2) Enteritis, chemotherapy induced 3) Colon CA w/ colostomy 4) N/V, resolved plan; CR downtrending, K nml this AM, off levophed, nephro on board, continue IV hydration and IV Abx, PT eval, repeat BMP in AM, will follow along Plan discussed with: Other (n) Dietary Evaluation Review Recommendations by RD: Increase Calorie Intake, Protein Supplementation Comments: Pt meets criteria for Severe Protein-Calorie 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 energy needs >7 days. Nutrition Recommendation: 1. Nepro Carb Steady 240ml BID if PO intake <50% 2. Continue liberalizing to renal diet 3. Monitor blood glucose trend Expected Outcomes/Goals: To maintain/gain weight Oral intake to meet at least 75% estimated needs Fu 3-5 days Food and Nutrition Intake (Mod: <75% est energy req 7days Interpretation of weight loss: >20% in 1 year Protein Calorie Malnutrition: Severe Is there a minimum of two crit: Yes ADILIA CHEN MD Nov 06, 2024 07:11
[2024-11-06 07:14] LABS: Basophils % (manual) 0 (0.0-2.0); Blast Cells 0; Promyelocytes % 0; Reactive Lymphocytes 0
[2024-11-06 07:51] LABS: Band Neutrophils % (manual) 12; Eosinophils % (manual) 1 (0-7); Lymphocytes % (manual) 38 (10.0-50.0); Metamyelocytes % 2; Monocytes % (manual) 9 (0-12); Myelocytes % 1; Platelet Estimate Decreased
--- NOTE | 2024-11-06 09:24 | DVHPN2 ---
Progress Note Date Seen: Nov 06, 2024 Medical Necessity Reason Pt with a Central, PICC or Fol: No Subjective Patient reports: No new complaints Other Systems: Patient seen and examined by myself today in follow-up Objective vital signs Vital Sign Date Time Temp Pulse Resp B/P (MAP) Pulse Ox O2 Delivery O2 Flow Rate FiO2 11/06/24 06:30 65 19 100/49 (66) 91 11/06/24 06:00 Room Air* 0 21 11/05/24 20:00 98.0 98.0 Total Intake and Output 11/05/24 11/05/24 11/06/24 15:00 23:00 07:00 Intake Total 1156.875 ml 1935.025 ml 1100 ml Output Total 520 ml 0 ml Balance 1156.875 ml 1415.025 ml 1100 ml medications Current Medications Medications Dose Ordered Sig/Konstantin Route Start Time Stop Time Status Last Admin Dose Admin Acetaminophen 325 mg Q4HP PRN PO 11/04/24 14:45 Nitroglycerin 0.4 mg Q5MINP PRN SL 11/04/24 14:45 Morphine Sulfate 2 mg Q30M PRN IV 11/04/24 14:45 Ondansetron HCl 8 mg Q6HP PRN IV 11/04/24 14:45 Sucralfate 1 gm TID PO 11/04/24 15:00 11/06/24 06:29 1 GM Famotidine 10 mg DAILY IV 11/04/24 15:15 11/05/24 09:52 10 MG Sodium Bicarbonate 50 ml/ Sodium Chloride 1,050 ml @ 125 mls/hr Q8H24M IV 11/05/24 09:45 11/06/24 08:42 125 MLS/HR Potassium Bicarbonate 50 meq BID PO 11/05/24 10:00 11/06/24 22:01 11/05/24 21:36 50 MEQ Piperacillin Sod/ Tazobactam Sod 100 ml @ 25 mls/hr Q12HR IV 11/05/24 14:45 11/05/24 21:40 25 MLS/HR Norepinephrine Bitartrate 250 ml @ 3.75 mls/hr Q24H IV 11/05/24 20:15 Examination: LUNGS:Normal, CVS:Normal, MSK:Normal laboratory and microbiology Laboratory Tests 11/06/24 05:59 Test 11/06/24 05:59 Range/Units Serum Glucose 83 74-106 mg/dL Problem List/Assessment/Plan Problem List/Assessment/Plan Acute kidney injury secondary to hemodynamic mediated ATN, FeNa > 2% Intractable nausea vomiting History of colon cancer on chemotherapy Hypokalemia due to potassium depletion Hyponatremia due to dehydration Hyperuricemia Metabolic acidosis Diabetes mellitus type 2 Colostomy Recommendations Kidney function slightly is improving Increased urine output Strict I&Os Kidney ultrasound reported within normal limit I agree with IV fluid hydration Albumin 25% IV piggyback Aggressive KCL replacement Insulin sliding scale We will continue to follow Plan discussed with: Patient My Orders My Orders Orders - FAUSTINO KIMBROUGH MD Procedure Category Date Status Time Sod Chl 0.45% PHA 11/05/24 In Process (Sodi... 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 energy needs >7 days. Nutrition Recommendation: 1. Nepro Carb Steady 240ml BID if PO intake <50% 2. Continue liberalizing to renal diet 3. Monitor blood glucose trend Expected Outcomes/Goals: To maintain/gain weight Oral intake to meet at least 75% estimated needs Fu 3-5 days Food and Nutrition Intake (Mod: <75% est energy req 7days Interpretation of weight loss: >20% in 1 year Protein Calorie Malnutrition: Severe Is there a minimum of two crit: Yes FAUSTINO KIMBROUGH MD Nov 06, 2024 09:24
[2024-11-06] MEDS: SOD CHL 0.45% 1,000 ML IV SCH ×2 (10:52→15:33)
[2024-11-07 01:00] VITALS: BP 119/68; PULSE 64; RESP 16; TEMP 97.6; O2SAT 94
[2024-11-07 05:00] VITALS: BP 111/66; PULSE 63; RESP 18; TEMP 98.7; O2SAT 93
[2024-11-07 07:37] LABS: Basophils # (auto) 0 10 ^3/uL (0-0.2); Basophils % (auto) 0.3 % (0.0-2.0); Eosinophils # (auto) 0 10 ^3/uL (0-0.8); Eosinophils % (auto) 0.3 % (0.0-7.0); Hematocrit 30.7 % (36.0-46.0); Hemoglobin 10.5 g/dL (12.2-16.2); Lymphocytes # (auto) 1.4 10 ^3/uL (0.4-5.4); Lymphocytes % (auto) 26.1 % (10.0-50.0); Mean Corpuscular Hemoglobin 30.9 pg (28.0-32.0); Mean Corpuscular Hgb Conc. 34.1 g/dL (32.0-36.0); Mean Corpuscular Volume 90.4 fL (80.0-100.0); Monocytes # (auto) 0.8 10 ^3/uL (0-1.3); Monocytes % (auto) 13.8 % (0.0-12.0); Neutrophils # (auto) 3.2 10 ^3/uL (1.6-8.6); Neutrophils % (auto) 59.5 % (37.0-80.0); Nucleated Red Blood Cells % 0.3 %; Platelet Count (auto) 104 10^3/uL (140-450); Red Blood Cells 3.39 10^6/uL (4.0-5.20); Red Cell Distribution Width 19.8 % (11.8-14.3); White Blood Cell 5.4 10^3/uL (4.4-10.8)
[2024-11-07 07:52] LABS: Chloride 104 mmol/L (98-107); Sodium 141 mmol/L (136-145)
[2024-11-07 07:53] LABS: Anion Gap 9 (5-15); Carbon Dioxide 28 mmol/L (20-31)
[2024-11-07 07:57] LABS: Potassium 3.4 mmol/L (3.5-5.1)
[2024-11-07 07:58] LABS: BUN/Creatinine Ratio 7.8 (10.0-20.0); Blood Urea Nitrogen 30 mg/dL (9-23); Glucose 91 mg/dL (74-106)
[2024-11-07 08:00] VITALS: PULSE 85
--- NOTE | 2024-11-07 08:08 | DVHDS2 ---
New Physician D'charge PN Admitting Diagnosis Admitting Diagnosis n/v Discharge Diagnosis VAL Operations or Procedures none Reason(s) For Hospitalization Surgery Hospital Course 74 F who comes to hospital for n/v/ She has colon cancer with colostomy and apparently finished her last session of chemotherapy just recently. When she arrived her Cr was noted to be 6.5 and she was admitted and nephro was consulted. Her K was repleted and she was hydrated continuously with IV fluids. Her Cr has been downtrending day to day with most recent Cr this AM being 3.5. Her UOP has been good. She has been cleared for dc by nephrology and will follow up in the office with renal outpt to recheck her renal function. She has a CT abd done which showed enteritis likely chemotherapy induced and for that she was treated with IV Anx here in the hospital and her n/v resolved and now she is comfortable tolerating a diet. She will be discharged home with outpt PCP and renal follow up via [facility]. Updated the daughter and she agrees with plan. Treatment Plan Discharge Condition of Discharge Good Disposition Home Discharge Instructions Diet: Cardiac 2g Na,low cholest Activity: No Restrictions, As Tolerated Medications: see med sheet Follow Up Care Follow Up/Referral: pcp renal Discharge Statement: "Patient was advised to return to the ER or call 911 if any headaches, dizziness, shortness of breath, chest pain, abdominal pain, bleeding, fevers, or worsening of medical condition. Patient was counseled about treatment plan, medications, possible side effects, patientverbalized understanding. All questions were answered to the best of my ability. This discharge took greater then 30 minutes in planning, reviewing documentation, counseling the patient, and discussing with other team members." ADILIA CHEN MD Nov 07, 2024 08:08
[2024-11-07 09:00] VITALS: BP 107/61; PULSE 64; RESP 16; TEMP 97.3; O2SAT 96
[2024-11-07 09:25] VITALS: BP 107/61; PULSE 64; RESP 16; TEMP 97.3; O2SAT 96
== END 2024-11-07 13:27 | disposition home or self-care (01) | DRG 393 ==
LOC: ER 12:01 → OVERFLOW 14:38 → TELE-CENTR 11-06 15:38
PROVIDERS: ADMIT Student in an Organized Health Care Education/Training Program; ATTEND Student in an Organized Health Care Education/Training Program
DX: K52.1 Toxic gastroenteritis and colitis (principal); N17.0 Acute kidney failure with tubular necrosis; E87.1 Hypo-osmolality and hyponatremia; E87.20 Acidosis, unspecified; E86.0 Dehydration; E87.6 Hypokalemia; E11.9 Type 2 diabetes mellitus without complications; T45.1X5A Adverse effect of antineoplastic and immunosuppressive drugs, initial encounter; E78.5 Hyperlipidemia, unspecified; I10 Essential (primary) hypertension; Z85.038 Personal history of other malignant neoplasm of large intestine; Z93.3 Colostomy status; Z90.710 Acquired absence of both cervix and uterus; Z86.718 Personal history of other venous thrombosis and embolism; Z92.21 Personal history of antineoplastic chemotherapy; Z79.84 Long term (current) use of oral hypoglycemic drugs; Y92.89 Other specified places as the place of occurrence of the external cause
CPT/HCPCS: 36415; 74176; 76775; 80048; 80053; 81001; 82306; 82533; 82570; 83036; 83735; 83880; 83970; 84100; 84156; 84300; 84550; 85007; 85025; 85027; 87081; 93306; 93970; 96361; 96374; 97163; 99291; G0378; J1335; J2405; J2543; J3480; J3490; P9047